=== PATIENT | male | born 1970 | race Caucasian/White ===

== ENCOUNTER 2019-07-12 14:44 | Inpatient (IN) | payer OTHER ==
[~2019-07-12] VITALS: Ht 163 cm; Wt 114.8 kg
[2019-07-12] VITALS (15 sets, daily range): BP systolic 142–210; BP diastolic 74–126
[2019-07-12 15:05] LABS: BASO # 0.1 10*3/uL (0.0-0.1); BASO % 0.7 % (0.0-1.0); EOS # 0.1 10*3/uL (0.0-0.4); HEMATOCRIT 48.6 % (42.0-52.0); HEMOGLOBIN 16.9 g/dl (14.0-18.0); LYMPH # 3.3 10*3/uL (1.3-4.4); LYMPH % 34.4 % (27.0-41.0); MEAN CORPUSCULAR HGB 29.9 pg (27.0-31.0); MEAN CORPUSCULAR HGB CONC 34.8 g/dl (33.0-37.0); MEAN PLATELET VOLUME 12.2 fl (9.6-12.3); MONO % 10.8 % (3.0-9.0); NEUT % 52.7 % (47.0-73.0); PLATELET COUNT AUTOMATED 233 10*3/uL (130-400); RED BLOOD COUNT 5.65 10*6/uL (4.50-5.90); RED CELL DISTRI WIDTH 13.1 % (0-14.5); WHITE BLOOD COUNT 9.6 10*3/uL (4.8-10.8)
--- NOTE | 2019-07-12 15:08 | NUR ---
PATIENT DENIES ANY WOUNDS AT THIS TIME.
[2019-07-12 15:20] LABS: ACT PARTIAL THROMBO TIME 23.9 SECONDS (20.0-32.1); ALKALINE PHOSPHATASE 131 U/L (45-117); BUN 17 mg/dl (7-24); CHLORIDE 102 mmol/L (98-107); CREATININE 1.25 mg/dL (0.70-1.30); INTERNATIONAL NORM RATIO 0.9 (2.0-3.5); POTASSIUM 3.6 mmol/L (3.5-5.1); SGOT/AST 60 IU/L (3-35); SGPT/ALT 99 U/L (12-78); SODIUM 137 mmol/L (136-145); TOTAL PROTEIN 8.2 gm/dL (6.4-8.2)
[2019-07-12 15:22] LABS: TROPONIN I < 0.015 ng/ml (<0.045)
--- NOTE | 2019-07-12 20:18 | NUR ---
CONSULT FOR DR ESTRELLA AT THIS TIME MESSAGE LEFT WITH ANSWERING SERVICE VIVIANA CARR RN.
--- NOTE | 2019-07-12 20:18 | NUR ---
PT RESTING AT THIS TIME VOICES NO COMPLAINTS AT THIS TIME. VIVIANA CARR RN.
--- NOTE | 2019-07-12 20:20 | NUR ---
DR ESTRELLA AWARE OF CONSULT WILL SEE HIM IN THE AM. VIVIANA CARR RN.
--- NOTE | 2019-07-12 23:24 | NUR ---
NITRO DRIP STOPPED AT THIS TIME BP AT 142/74 PT MOVED TO ROOM 9 PLACED IN HOSPITAL BED AT THIS TIME. VIVIANA CARR RN.
[2019-07-13] VITALS (10 sets, daily range): BP systolic 162–201; BP diastolic 90–112
--- NOTE | 2019-07-13 05:33 | NUR ---
PT AWAKE ALERT VOICES NO COMPLAINTS . MONITOR SHOWING SINUS RRHYTHM. VIVIANA CARR RN.
[2019-07-13 06:10] LABS: BUN 16 mg/dl (7-24); CHLORIDE 104 mmol/L (98-107); CREATININE 1.24 mg/dL (0.70-1.30); POTASSIUM 3.3 mmol/L (3.5-5.1); SODIUM 138 mmol/L (136-145)
[2019-07-13 06:12] LABS: BASO # 0.1 10*3/uL (0.0-0.1); BASO % 0.6 % (0.0-1.0); EOS # 0.1 10*3/uL (0.0-0.4); EOS % 0.8 % (1.0-4.0); HEMATOCRIT 44.9 % (42.0-52.0); HEMOGLOBIN 15.5 g/dl (14.0-18.0); LYMPH # 2.1 10*3/uL (1.3-4.4); LYMPH % 24.2 % (27.0-41.0); MEAN CELL VOLUME 85.7 fl (80.0-94.0); MEAN CORPUSCULAR HGB 29.6 pg (27.0-31.0); MEAN CORPUSCULAR HGB CONC 34.5 g/dl (33.0-37.0); MEAN PLATELET VOLUME 12.4 fl (9.6-12.3); MONO % 11.6 % (3.0-9.0); NEUT # 5.5 10*3/uL (2.3-7.9); NEUT % 62.6 % (47.0-73.0); PLATELET COUNT AUTOMATED 190 10*3/uL (130-400); RED BLOOD COUNT 5.24 10*6/uL (4.50-5.90); RED CELL DISTRI WIDTH 13.2 % (0-14.5); WHITE BLOOD COUNT 8.7 10*3/uL (4.8-10.8)
--- NOTE | 2019-07-13 07:04 | NUR ---
REPORT FROM VIVIANA RN AT THIS TIME. PATIENT IS A&OX4. RESP EASY NON LABORED. APPEARS IN NO DISTRESS.
--- NOTE | 2019-07-13 07:46 | NUR ---
PATIENT BP IS 201/[address] WHALEY SHE STATES VERBAL ORDER TO GIVE PATIENT NORVASC 5MG PO AT THIS TIME.
--- NOTE | 2019-07-13 08:25 | NUR ---
SPOKE WITH DR DREW AND HE STATES DO NOT GIVE PATIENT THE NORVASC THAT DR WHALEY ORDERED. JUST GIVE PATIENT THE COREG NOW INSTEAD OF AT 1000.
--- NOTE | 2019-07-13 08:27 | NUR ---
CALLED PHARMACY TO HAVE COREG SENT EARLY.
--- NOTE | 2019-07-13 11:11 | NUR ---
A 48, admitted to 4E, under the services of Dr. VIKI BUCHANAN,REUBEN Perera with a diagnosis of HTN URGENCY, ACUTE CHF. Chief complaint is WHEEZE, SOB. Patient arrived via stretcher from ER. Monitor applied. Initial assessment completed. Vital signs taken and recorded. DR. VIKI BUCHANAN,REUBEN Perera notified of admission to the unit. Orders received. See assessment for past medical history, medications and allergies. Patient and/or family oriented to unit. [facility] visitation policy reviewed. Clothing/patient valuable form completed. RAÚL CONTI
[2019-07-13] MEDS ORDERED: CARVEDILOL25 MG PO (11:32)
[2019-07-13] MEDS ORDERED: SPIRONOLACTONE50 M1 PO (11:32)
--- NOTE | 2019-07-13 11:32 | NUR ---
AWARE THAT PT WAS BROUGHT TO FLOOR AND BP IS 189/95. ASKED TO RECHECK IN 1HR AND GIVE ALDACTONE PRESCRIBED FROM HOME.
--- NOTE | 2019-07-13 11:33 | NUR ---
MED REC UPDATED WITH PT AT BEDSIDE.
--- NOTE | 2019-07-13 12:44 | NUR ---
NOTIFIED OF BP 182/107. SAID TO NOTIFY CARDIOLOGY. AWARE OF BP. NEW ORDER FOR GUERRERO RUIZ HYDRALAZINE REC'D. SEE JUL.
--- NOTE | 2019-07-13 13:57 | NUR ---
BP 168/98 FOLLOWING LOSARTAN AND HYDRALAZINE. WILL CONTINUE TO MONITOR. CALL LIGHT WITHIN REACH. NO VOICED COMPLAINTS.
--- NOTE | 2019-07-13 15:30 | NUR ---
Senior Branch Manager in to talk to patient. Patient states lives at home with his . There are 4 steps in the home. Physician: Dr. Tereso Lucero Pharmacy: [facility] Home health services: none Patient's level of ADLs: INDEPENDENT Patient has working utilities: yes DME: none Follow-up physician's appointment after d/c: he prefers to make his own follow up appt after discharge Does patient want to access PORTAL?: no Discharge plan discussed with patient and his who is at the bedside. He lives at home with his . He is independent in his ADLs and ambulation. Discussed home health care services and he denies any home needs at this time. When medically stable he will be discharged to home. His will provide transportation on discharge. TIMBO REEYS
--- NOTE | 2019-07-13 16:31 | NUR ---
CALLED FOR BP 209/97. NEW ORDERS FOR HYDRALAZINE AND AMLODIPINE REC'D. SEE JUL.
--- NOTE | 2019-07-13 19:50 | NUR ---
IN PT ROOM TO COMPLETE ASSESSMENT. PT STATES HE HAS NO COMPLAINTS AT THIS TIME, ASIDE FROM A STUFFY NOSE. REVIEWED MEDICATIONS THAT WERE GIVEN TODAY WITH THE PATIENT, AND FURTHER CARE. HE HAS NO COMPLAINTS OR NEEDS AT THIS TIME, CALL LIGHT WITHIN REACH WILL CONTINUE TO MONITOR
[2019-07-14] VITALS: BP 173/106
--- NOTE | 2019-07-14 01:30 | NUR ---
24 HR chart check completed.
[2019-07-14 04:08] VITALS: BP 180/93
[2019-07-14 07:13] LABS: BUN 20 mg/dl (7-24); CHLORIDE 105 mmol/L (98-107); CREATININE 1.12 mg/dL (0.70-1.30); POTASSIUM 3.5 mmol/L (3.5-5.1); SODIUM 138 mmol/L (136-145)
[2019-07-14 08:00] VITALS: BP 176/90
--- NOTE | 2019-07-14 10:01 | NUR ---
OFF FLOOR FOR STRESS TEST.
--- NOTE | 2019-07-14 10:38 | NUR ---
OFF FLOOR FOR STRESS TEST.
--- NOTE | 2019-07-14 11:30 | NUR ---
INFORMED CONSENT SIGNED FOR LEXISCAN STRESS TEST FOR CHF. RESTING EKG LBBB, HR 84, BP 174/100. PULSE OX 97% AND LUNGS CLEAR. COMPLETED ONE MINUTE OF LEXISCAN PROTOCOL RECEIVING LEXISCAN 0.4MG OVER [address] CHANGES NOTED WITH NO ARRHYTHMIAS. PT C/O NAUSEA. LAST RECOVERY HR 105, BP 170/98. WAITING NUCLEAR SCANNING IN STABLE CONDITION.
[2019-07-14 13:13] VITALS: BP 160/90
[2019-07-14 16:00] VITALS: BP 161/82
--- NOTE | 2019-07-14 19:40 | NUR ---
IN PT ROOM AND DISCUSSED HIS STRESS TEST THAT WAS DONE TOADY, AND PT STATES THAT HE STILL FEELS ASYMPTOMATIC AT THIS TIME, JUST NEEDS HIS BP TO COME DOWN BEFORE HE CAN BE DISCHARGED. CALL LIGHT IS WITHIN REACH, WILL CONTINUE TO MONITOR
[2019-07-14 20:00] VITALS: BP 134/76
[2019-07-15] VITALS: BP 126/83
--- NOTE | 2019-07-15 03:14 | NUR ---
24 HR chart check completed.
--- NOTE | 2019-07-15 03:43 | NUR ---
Patient sleeping. Respirations relaxed and easy. WHEEL LOCKS ON. VERONICA LOPEZ
[2019-07-15 06:37] LABS: BUN 23 mg/dl (7-24); CHLORIDE 106 mmol/L (98-107); CREATININE 1.17 mg/dL (0.70-1.30); POTASSIUM 3.3 mmol/L (3.5-5.1); SODIUM 140 mmol/L (136-145)
[2019-07-15 08:00] VITALS: BP 165/90
[2019-07-15 12:00] VITALS: BP 148/89
[2019-07-15] MEDS ORDERED: COREG CR40 MG PO (15:57)
[2019-07-15] MEDS ORDERED: APRESOLINE25 MG PO (15:57)
--- NOTE | 2019-07-15 16:25 | NUR ---
PATIENT DISCHARGED TO HOME. ALL PERSONAL BELONGINGS SENT WITH PATIENT. IV AND PERSONAL LOAN SPECIALIST DISCONTINUED. DISCHARGE INSTRUCTIONS GIVEN AND REVIEWED WITH PATIENT. PATIENT INSTRUCTED THAT TWO PRESCRIPTIONS WERE SENT TO [facility]. INSTRUCTED TO FOLLOW UP WITH AND .
== END 2019-07-15 16:37 | disposition home or self-care (01) | DRG 304 ==
LOC: ED 14:44 → 4E 17:28 → EDHOLD 17:28 → 4E 07-13 08:24
PROVIDERS: Emergency Medicine; ADMIT Internal Medicine
PROC: 4A02XM4 Measurement of Cardiac Total Activity, External Approach (ICD-10-PCS; principal; 2019-07-14)
PROC: 3E073KZ Introduction of Other Diagnostic Substance into Coronary Artery, Percutaneous Approach (ICD-10-PCS; principal; 2019-07-14)
DX: I16.9 Hypertensive crisis, unspecified (principal); I50.33 Acute on chronic diastolic (congestive) heart failure; Z68.41 Body mass index [BMI] 40.0-44.9, adult; I24.8 Other forms of acute ischemic heart disease; I11.0 Hypertensive heart disease with heart failure; E26.9 Hyperaldosteronism, unspecified; E66.01 Morbid (severe) obesity due to excess calories; K76.0 Fatty (change of) liver, not elsewhere classified; E78.5 Hyperlipidemia, unspecified; R73.9 Hyperglycemia, unspecified; I44.7 Left bundle-branch block, unspecified; E87.6 Hypokalemia; R05 Cough; T50.995A Adverse effect of other drugs, medicaments and biological substances, initial encounter; Z91.14 Patient's other noncompliance with medication regimen; Y92.89 Other specified places as the place of occurrence of the external cause

== ENCOUNTER → 2019-07-26 | Outpatient (CLI) | payer OTHER ==
[~2019-07-26] MED LIST: APRESOLINE25 MG PO; CARVEDILOL25 MG PO; COREG CR40 MG PO; SPIRONOLACTONE50 M1 PO
[2019-07-30 17:03] LABS: METANEPHRINE, PLASMA <10 pg/mL (0-62)
[2019-07-31 10:18] LABS: NORMETANEPHRINE, PLASMA 91 pg/mL (0-145)
== END | disposition home or self-care (01) ==
LOC: LAB 10:35 → NM 11:00
PROVIDERS: Family Medicine
DX: I10 Essential (primary) hypertension (principal)